=== PATIENT | male | born 2000 | race Caucasian/White ===

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

== ENCOUNTER 2023-02-13 21:03 | Emergency (ER) | payer BC ==
[~2023-02-13] VITALS: Ht 182.8 cm; Wt 71.2 kg
[2023-02-13] MEDS ORDERED: VIBRAMYCIN100 MG PO (21:26)
[2023-02-13] MEDS ORDERED: SEPTDS PO (21:27)
== END 2023-02-13 21:44 | disposition home or self-care (01) ==
LOC: ED 21:03
DX: A69.20 Lyme disease, unspecified (principal); L03.116 Cellulitis of left lower limb

== ENCOUNTER → 2023-02-19 | Outpatient (CLI) | payer OTHER, BC ==
[~2023-02-19] MED LIST: SEPTDS PO; VIBRAMYCIN100 MG PO
[2023-02-19 10:35] LABS: HEMATOCRIT 49.6 % (42.0-52.0); MEAN CORPUSCULAR HGB 30.6 pg (27.0-31.0); MEAN CORPUSCULAR HGB CONC 33.7 g/dl (33.0-37.0); MEAN PLATELET VOLUME 11.1 fl (9.6-12.3); RED BLOOD COUNT 5.45 10*6/uL (4.50-5.90); RED CELL DISTRI WIDTH 12.7 % (0-14.5); WHITE BLOOD COUNT 5.4 10*3/uL (4.8-10.8)
[2023-02-19 11:04] LABS: ALKALINE PHOSPHATASE 92 U/L (46-116); BUN 15 mg/dl (9-23); CHLORIDE 105 mmol/L (98-107); CHOLESTEROL 130 mg/dL (<200); LDL CHOLESTEROL 64 mg/dL (9-159); POTASSIUM 4.7 mmol/L (3.4-5.1); SGPT/ALT 27 U/L (10-49); TOTAL PROTEIN 7.4 gm/dL (6.0-8.0); TRIGLYCERIDES 44 mg/dl (<150)
== END | disposition home or self-care (01) ==
LOC: LAB 09:21
PROVIDERS: ATTEND Family Medicine
DX: Z00.00 Encounter for general adult medical examination without abnormal findings (principal); E78.00 Pure hypercholesterolemia, unspecified